=== PATIENT | male | born 1965 | race Caucasian/White ===

== ENCOUNTER 2019-12-07 14:54 | Inpatient (IN) | payer OTHER ==
[~2019-12-07] VITALS: Ht 175.3 cm; Wt 95.5 kg
[2019-12-07] MEDS ORDERED: LIPITOR 10MG10 MG PO (15:01)
[2019-12-07] MEDS ORDERED: LIPITOR20 MG PO (15:01)
[2019-12-07] MEDS ORDERED: ASPIRIN 81M81 MG/TA2 PO (15:01)
[2019-12-07 17:22] LABS: BASO % 0.2 % (0.0-2.0); EOS % 0.2 % (0-4.0); GRAN # 13.2 (1.4-6.5); HEMATOCRIT 38.6 % (42.0-52.0); HEMOGLOBIN 13.1 g/dl (13.5-18.0); LYMPH # 0.9 (1.2-3.4); LYMPH % 5.8 % (20.0-51.0); MEAN CELL VOLUME 89 fl (80.0-100.0); MEAN CORPUSCULAR HEMOGLOBIN 30 pg (27.0-31.0); MEAN CORPUSCULAR HGB CONC 34 g/dl (33.0-37.0); MEAN PLATELET VOLUME 13.1 fl (7.4-10.4); MONO # 0.9 (0.1-0.6); MONO % 6.1 % (1.7-9.3); PLATELET COUNT 137 K/mm3 (130-400); RED BLOOD COUNT 4.34 M/mm3 (4.20-5.60); REDCELL DISTRIBUTION WIDTH-CV 12.7 % (11.5-14.5)
[2019-12-07 17:25] LABS: ALBUMIN 3.9 gm/dL (3.5-5.0); BILIRUBIN,TOTAL 0.4 mg/dL (0.0-1.0); CALCIUM 8.5 mg/dL (8.4-10.2); CREATININE, serum 1.02 (0.66-1.25); POTASSIUM 3.8 mmol/L (3.4-5.0); TOTAL PROTEIN 6.9 gm/dL (6.4-8.2)
[2019-12-07 17:27] LABS: INR 1.1 (0.8-3.0); PROTHROMBIN TIME 11.8 SECONDS (9.7-12.8)
[2019-12-07 17:47] LABS: PARTIAL THROMBOPLASTIN TIME 25.3 SECONDS (26.0-37.0)
--- NOTE | 2019-12-07 19:15 | NUR ---
Patient arrived to floor around 183. He is on the splint and spine board from EMS. He had been on the spine board since being picked up by EMS. It took 4 people to get him off the splint and board. Patient stated his pain is out of control with every movement including breathing. Patient is alert and oriented. Explained the plan for now. He is laying in a very cramped up position. He will now allow us to try moving him around to place pillows under his legs. Dilauded given for pain, it was given early because patient is going for a CT his left femur and ankle. No other changes at this time. Call light within reach.
[2019-12-07 21:12] VITALS: BP 141/90; PULSE 106; TEMP 98.5
[2019-12-08] VITALS (12 sets, daily range): BP systolic 93–139; BP diastolic 59–81; PULSE 90–128; TEMP 97.6–98.1
[2019-12-08 01:29] LABS: COLLECTION METHOD CLEAN CATCH
[2019-12-08 01:35] LABS: MUCOUS Present /lpf; PH 7 (5-8); SQUAMOUS EPITHELIAL None Seen /hpf; URINE APPEARANCE Clear; URINE BACTERIA None Seen /hpf; URINE BILIRUBIN Negative (NEGATIVE); URINE BLOOD Negative (NEGATIVE); URINE COLOR Yellow; URINE GLUCOSE Negative (NEGATIVE); URINE KETONE Trace (NEGATIVE); URINE LEUKOCYTE ESTERASE Negative (NEGATIVE); URINE NITRATE Negative (NEGATIVE); URINE PROTEIN(semi-quant) Negative (NEGATIVE); URINE RBC 0-2 /hpf; URINE UROBILINOGEN Negative (NEGATIVE)
--- NOTE | 2019-12-08 05:55 | NUR ---
Patient alert and oriented this shift. Patient has been requiring dilaudid every 2 hours for pain management. He has been able to rest in short periods of time. Patient has been afebrile and is NPO at this time. IV to the left hand with LR running at 100mL/hr.
--- NOTE | 2019-12-08 08:00 | NUR ---
Patient resting in bed at this time. Patient is alert and oriented, answers questions appropriately. Patient reports pain at 8/10, will administer pain medication at earliest oppertunity. Pre op fluids hung and Humberto hose placed on uninjured leg. Patient denies needs at this time, call light within reach.
--- NOTE | 2019-12-08 13:15 | NUR ---
Patient returned from PACU via bed. Patient is drowsy but rouses easily, and is alert and oriented while awake. Patient denies needs at this time. Post op checks initiated, call light within reach.
--- NOTE | 2019-12-08 18:16 | NUR ---
Patient resting in bed at this time. PO PRN pain medications administered, patient tolerating PO intake well. Patient denies further needs at this time, call light within reach.
[2019-12-09] VITALS (12 sets, daily range): BP systolic 82–112; BP diastolic 53–75; PULSE 104–130; TEMP 98–99.7
--- NOTE | 2019-12-09 02:14 | NUR ---
PT ADMITTED TO 245 WITH RT HIP FRACTURE. SEE 5 PAGE ASSESSMENT. OXYMASK PLACED PT'S O2 SATS WERE DIPPING INTO 80's. PT SEEMS TO BE RESTING COMFORTABLY AT PRESENT. MORE ORDERS OBTAINED FROM ADMITTING PHYSICIAN VIA PHONE.
--- NOTE | 2019-12-09 03:38 | NUR ---
PT MEDICATED WITH DILAUDID, OXYCODONE AND TORADOL FOR LLE POST-OP PAIN. NO N/V. ICE IN USE. LLE ELEVATED. PALPABLE PEDAL PULSES.
[2019-12-09 07:52] LABS: MEAN CELL VOLUME 92 fl (80.0-100.0); MEAN CORPUSCULAR HGB CONC 33 g/dl (33.0-37.0); MEAN PLATELET VOLUME 13.1 fl (7.4-10.4); PLATELET COUNT 96 K/mm3 (130-400); RED BLOOD COUNT 2.97 M/mm3 (4.20-5.60); REDCELL DISTRIBUTION WIDTH-CV 13.1 % (11.5-14.5)
[2019-12-09 07:58] LABS: CREATININE, serum 1.23 (0.66-1.25); HEMATOCRIT 27.4 % (42.0-52.0); HEMOGLOBIN 9.1 g/dl (13.5-18.0); MEAN CORPUSCULAR HEMOGLOBIN 31 pg (27.0-31.0); POTASSIUM 4.3 mmol/L (3.4-5.0)
--- NOTE | 2019-12-09 08:00 | NUR ---
Patient left floor with pre op via bed. Patient was alert and oriented while awake and denied needs.
--- NOTE | 2019-12-09 11:00 | NUR ---
Patient arrived to floor from PACU via bed. Patient is alert and oriented but drowsy, rouses easily. Patient reports pain is well controlled and denies needs. Post op checks initated, call light within reach.
[2019-12-09 14:22] LABS: HEMOGLOBIN 7.8 g/dl (13.5-18.0)
--- NOTE | 2019-12-09 18:38 | NUR ---
Patient currently resting in bed eating dinner. Patient continues to complain of discomfort in ankle splint, repositioning and PRN pain medication offer some relief, cap refill WNL. Patient denies nausea or further needs, call light within reach.
[2019-12-09 21:49] LABS: HEMATOCRIT 24.3 % (42.0-52.0); HEMOGLOBIN 8.1 g/dl (13.5-18.0)
--- NOTE | 2019-12-10 00:59 | NUR ---
PATIENT ALERT AND ORIENTED. CONTINUED C/O PAIN TO L HIP AND L ANKLE. FREQUENTLY NEEDING REPOSITIONED AND CANNOT FIND A COMFORTABLE POSITION. L HIP IS VERY TIGHT AND SWOLLEN. X6 INCISIONAL SITES TO UPPER L LEG ARE CDI WITH GAUZE AND TEGADERM. L ANKLE IS SPLINTED AND MURALI WRAPPED. PRN DILAUDID, AUTUMN, AND ZANAFLEX GIVEN THROUGHOUT NIGHT. SCHEDULED TORADOL AND ANCEF GIVEN WITHOUT ISSUE. IV TO L HAND INFILTRATED AND RESTARTED ON SECOND ATTEMPT TO R FA. PATIENT WAS TACHYCARDIC EARLIER AND WAS STARTED ON TELE. BP WAS LOW AND 1 L FLUID BOLUS WAS ORDERED BY CLINTON FERMIN AND GIVEN. HGB DOWN TO 8.1.
[2019-12-10 04:16] VITALS: BP 110/61; PULSE 126; TEMP 98.7
[2019-12-10 06:27] LABS: BASO % 0.4 % (0.0-2.0); EOS # 0.3 (0.0-0.7); EOS % 3.5 % (0-4.0); GRAN # 5.1 (1.4-6.5); GRAN % 68.4 % (42.2-75.2); LYMPH # 1.4 (1.2-3.4); LYMPH % 18.2 % (20.0-51.0); MEAN CELL VOLUME 92 fl (80.0-100.0); MEAN CORPUSCULAR HGB CONC 34 g/dl (33.0-37.0); MEAN PLATELET VOLUME 12.7 fl (7.4-10.4); MONO # 0.7 (0.1-0.6); MONO % 9.4 % (1.7-9.3); PLATELET COUNT 90 K/mm3 (130-400); RED BLOOD COUNT 2.47 M/mm3 (4.20-5.60); REDCELL DISTRIBUTION WIDTH-CV 12.9 % (11.5-14.5)
[2019-12-10 06:37] LABS: HEMATOCRIT 22.6 % (42.0-52.0); HEMOGLOBIN 7.7 g/dl (13.5-18.0); MEAN CORPUSCULAR HEMOGLOBIN 31 pg (27.0-31.0)
[2019-12-10 06:55] LABS: CREATININE, serum 1.08 (0.66-1.25)
[2019-12-10 07:53] VITALS: BP 108/56; PULSE 128; TEMP 98.3
--- NOTE | 2019-12-10 08:00 | NUR ---
Patient in bed resting, alert and oriented x 3. Assessment complete. States mild pain to left lower extremity. Sites x6 to left lower extremity with gauze are CDI. Ecchymosis noted to left upper thigh. Splint to left ankle with cisco wrap are CDI. Denies further needs at this time.
--- NOTE | 2019-12-10 10:10 | NUR ---
Patient called out to nurses station, states he is having pain to LLE crushing pain to left hip and throbbing pain to left ankle. Medications given per orders.
--- NOTE | 2019-12-10 10:37 | NUR ---
EROS met with the patient to complete initial intake. The patient lives by [address] [place]between [place] and [place]. The patient lives with his , and his 85 year old father. The patient does not have DME and is independent with ADLs. The patient's PCP is Dr. Rivera at [place] and also receives medications from there. The patient does not have advanced directives in the EMR. Physical therapy is recommending post acute rehab. The patient was open to sending a referral to [facility] and not where else. If he cannot get into [facility] here he will go home with outpatient therapy at [facility]. EROS informed ELMER Truong Director of the referral. Will continue to monitor.
--- NOTE | 2019-12-10 11:06 | NUR ---
First visit from the photography coordinator. prayed with patient. No other needs right now.
[2019-12-10 12:18] VITALS: BP 114/56; PULSE 122; TEMP 98.4
--- NOTE | 2019-12-10 12:31 | NUR ---
Hospitalist and team in to see patient.
[2019-12-10 12:40] LABS: HEMATOCRIT 22.6 % (42.0-52.0); HEMOGLOBIN 7.6 g/dl (13.5-18.0)
--- NOTE | 2019-12-10 13:09 | NUR ---
Left message for [facility], patient has questions for ortho.
--- NOTE | 2019-12-10 14:26 | NUR ---
Patient ambulated >20 feet with x1 assist and walker.
--- NOTE | 2019-12-10 15:09 | NUR ---
Contacted [facility], states they will be by later today to see patient.
[2019-12-10] MEDS ORDERED: PERCOCET 325 MG1 TAB PO (16:05)
[2019-12-10] MEDS ORDERED: COLACE 100100 MG/CAP PO (16:05)
[2019-12-10] MEDS ORDERED: ASPI325T6 PO (16:05)
[2019-12-10 16:18] VITALS: BP 131/81; PULSE 109; TEMP 98.5
--- NOTE | 2019-12-10 16:49 | NUR ---
Patient states pain is better since administration of percocet and muscle relaxer.
--- NOTE | 2019-12-10 19:30 | NUR ---
PATIENT UP IN CHAIR DURING CHANGE OF SHIFT REPORT FROM DAY SHIFT NURSEAMARILIS. TELE IN PLACE, SALINE LOCK INTACT. SEE eMAR FOR PRN MEDS GIVEN.
--- NOTE | 2019-12-10 19:35 | NUR ---
Patient has done well throughout the day. Has been up ambulating with x 1 assist and walker. States he would like to be able to regain mobility as soon as possible. Pain medications given throughout the day with relief. Patient has stated that xanaflex has also helped with pain, requested this evening prior to ambulating. Denies further needs at this time. Reported off to line assembler.
--- NOTE | 2019-12-10 20:00 | NUR ---
DECREASED ROM TO LLE DUE TO L HIP SURGERY/SWELLING/PAIN WITH MOVEMENT AND TO L ANKLE D/T SPLINT/MURALI DRESSING&PAIN&NWB STATUS TO LLE. OBSERVED SWELLING/BRUISING TO LATERAL L TORSO/HIP AREAS AND TO L TESTICLE. ELEVATED L TESTICLE ON FOLDED TOWEL AND APPLIED COOL/WET WASHCLOTHE FOR COMFORT. ELEVATES LLE ON PILLOWS WITH ICE PACKS TO LEFT THIGH/KNEE AREAS.
[2019-12-10 20:44] VITALS: BP 104/68; PULSE 97; TEMP 98.1
--- NOTE | 2019-12-10 22:45 | NUR ---
PATIENT SLEEPING CURRENTLY, DOES NOT AWAKEN WHEN DOOR TO ROOM IS OPENED BY STAFF. OBSERVED BREATHING NONLABORED AND EVEN. LLE ELEVATED, ICE TO LLE IN PLACE.
[2019-12-11] VITALS (7 sets, daily range): BP systolic 83–122; BP diastolic 40–64; PULSE 95–107; TEMP 97.7–99.4
--- NOTE | 2019-12-11 01:29 | NUR ---
PATIENT SLEEPING, DOES NOT AWAKEN WHEN DOOR TO ROOM IS OPENED BY STAFF. OBSERVED BREATHING NONLABORED AND EVEN.
--- NOTE | 2019-12-11 07:20 | NUR ---
PATIENT RESTING IN BED DURING CHANGE OF SHIFT REPORT GIVEN TO DAY SHIFT NURSEAMARILIS. NO OTHER NEEDS REPORTED. ENCOURAGED PATIENT TO INCREASE FLUID INTAKE WHEN ABLE.
[2019-12-11 07:33] LABS: CALCIUM 8.2 mg/dL (8.4-10.2); CREATININE, serum 1.1 (0.66-1.25); POTASSIUM 4.1 mmol/L (3.4-5.0)
[2019-12-11 07:38] LABS: BASO % 0.5 % (0.0-2.0); EOS # 0.4 (0.0-0.7); EOS % 5.4 % (0-4.0); GRAN # 4.4 (1.4-6.5); GRAN % 59.1 % (42.2-75.2); LYMPH % 26.5 % (20.0-51.0); MEAN CELL VOLUME 92 fl (80.0-100.0); MEAN CORPUSCULAR HGB CONC 34 g/dl (33.0-37.0); MEAN PLATELET VOLUME 13.4 fl (7.4-10.4); MONO # 0.6 (0.1-0.6); MONO % 7.6 % (1.7-9.3); PLATELET COUNT 109 K/mm3 (130-400); REDCELL DISTRIBUTION WIDTH-CV 13.1 % (11.5-14.5)
[2019-12-11 07:42] LABS: HEMATOCRIT 21.1 % (42.0-52.0); HEMOGLOBIN 7.1 g/dl (13.5-18.0); MEAN CORPUSCULAR HEMOGLOBIN 31 pg (27.0-31.0)
--- NOTE | 2019-12-11 08:00 | NUR ---
Patient in bed resting. Alert and oriented x 3. Assessment complete. x6 sites to left thigh are CDI. Eccymosis noted to groin and left outer thigh. Left lower leg with cisco wrap. INT to right forarm. States he has a sore throat, feels dry states ICE helps. Denies further needs at this time.
--- NOTE | 2019-12-11 08:55 | NUR ---
Patient requested muscle relaxer for thigh pain. Medication given per orders.
--- NOTE | 2019-12-11 08:59 | NUR ---
Patient up with PT
--- NOTE | 2019-12-11 19:11 | NUR ---
Patient has done well throughout the day. Sitting up in recliner. Has requested pain medication throughout the day, Medications given per orders. Ice maintained to left hip throughout the day. Oxygen on intermittently throughout the day. Left hip elevated on pillows. Denies further needs at this time. Will report off to retail shift supervisor.
--- NOTE | 2019-12-11 19:50 | NUR ---
PATIENT UP IN CHAIR DURING CHANGE OF SHIFT REPORT FROM DAY SHIFT NURSEAMARILIS. LLE ELEVATED ON PILLOWS. TELE IN PLACE. DENIES ANY NEEDS CURRENTLY.
--- NOTE | 2019-12-11 20:00 | NUR ---
DECREASED ROM TO LLE/HIP D/T SURGERY/PAIN WITH MOVEMENT/SWELLING AND SPLINT/MURALI DRSG TO L ANKLE. REPORTS DECREASED SENSATION TO LEFT TOES IS IMPROVING. TELE IN PLACE. CONTINUES TO ELEVATE LLE AT ALL TIMES, ELEVATES L TESTICLE NEEDED/FOR COMFORT.
--- NOTE | 2019-12-12 01:00 | NUR ---
PATIENT SLEEPING, DOES NOT AWAKEN WHEN DOOR TO ROOM IS OPENED BY STAFF. OBSERVED BREATHING NONLABORED AND EVEN. TELE IN PLACE. LLE ELEVATED ON PILLOWS. O2 CONTINUES PER NC.
[2019-12-12 04:53] VITALS: BP 113/60; PULSE 91; TEMP 98.4
[2019-12-12 07:22] LABS: BASO # 0.1 (0.0-0.2); BASO % 0.7 % (0.0-2.0); EOS # 0.5 (0.0-0.7); EOS % 6.7 % (0-4.0); GRAN # 4.1 (1.4-6.5); GRAN % 61.8 % (42.2-75.2); LYMPH # 1.5 (1.2-3.4); LYMPH % 22.7 % (20.0-51.0); MEAN CELL VOLUME 94 fl (80.0-100.0); MEAN CORPUSCULAR HGB CONC 32 g/dl (33.0-37.0); MEAN PLATELET VOLUME 12.8 fl (7.4-10.4); MONO # 0.5 (0.1-0.6); MONO % 7.7 % (1.7-9.3); PLATELET COUNT 135 K/mm3 (130-400); RED BLOOD COUNT 2.49 M/mm3 (4.20-5.60)
[2019-12-12 07:30] LABS: HEMATOCRIT 23.3 % (42.0-52.0); HEMOGLOBIN 7.5 g/dl (13.5-18.0); MEAN CORPUSCULAR HEMOGLOBIN 30 pg (27.0-31.0)
--- NOTE | 2019-12-12 07:30 | NUR ---
PATIENT RESTING IN BED DURING CHANGE OF SHIFT REPORT GIVEN TO DAY SHIFT NURSEAMARILIS. TELE IN PLACE. NO OTHER NEEDS REPORTED.
[2019-12-12 07:35] LABS: CALCIUM 8.2 mg/dL (8.4-10.2); CREATININE, serum 1.05 (0.66-1.25); POTASSIUM 3.7 mmol/L (3.4-5.0)
[2019-12-12 07:53] VITALS: BP 135/67; PULSE 101; TEMP 99
--- NOTE | 2019-12-12 08:00 | NUR ---
Patient in bed resting. Alert and oriented x 3. Assessment complete. Patient states mild pain to LLE. Refuses medication at this time. sites x6 to left thigh is CDI, Eccymosis noted to left thigh and groin. Splint to LLE with cisco wrap. Denies further needs at this time.
--- NOTE | 2019-12-12 09:00 | NUR ---
Patient shaved and performed hygine independently.
--- NOTE | 2019-12-12 11:46 | NUR ---
Patient sitting up in recliner
--- NOTE | 2019-12-12 12:08 | NUR ---
Assisted patient back to bed. Elevated LLE on pillows.
[2019-12-12] MEDS ORDERED: PERCOCET 325 MG1 TA3 PO (12:10)
[2019-12-12 12:28] VITALS: BP 95/68; PULSE 91; TEMP 98.3
[2019-12-12] MEDS ORDERED: IBU400 MG PO (12:59)
[2019-12-12] MEDS ORDERED: ULTRAM 50MG TAB50 MG PO (12:59)
[2019-12-12] MEDS ORDERED: ZANAFLEX 4MG TAB4 MG PO (12:59)
[2019-12-12] MEDS ORDERED: PEPCID AC20 MG PO (12:59)
[2019-12-12] MEDS ORDERED: OCEAN NASAL SPR45 ML NS (12:59)
--- NOTE | 2019-12-12 15:17 | NUR ---
Patient has done well throughout the day. Has requested pain medications throughout the day, medications given per orders. Patient transfered to [facility] by bed. Report called to Layla COSTA.
== END 2019-12-12 15:19 | DRG 480 ==
LOC: COL.ER 14:54 → JCC 16:59
PROVIDERS: Emergency Medicine; Nurse Practitioner Family; Orthopaedic Surgery Sports Medicine; Physician Assistant
PROC: 0QSHXZZ Reposition Left Tibia, External Approach (ICD-10-PCS; 2019-12-08)
PROC: BW1CYZZ Fluoroscopy of Lower Extremity using Other Contrast (ICD-10-PCS; 2019-12-08)
PROC: 0QS706Z Reposition Left Upper Femur with Intramedullary Internal Fixation Device, Open Approach (ICD-10-PCS; principal; 2019-12-08 10:00)
PROC: 0QSH04Z Reposition Left Tibia with Internal Fixation Device, Open Approach (ICD-10-PCS; 2019-12-09)
DX: S72.142A Displaced intertrochanteric fracture of left femur, initial encounter for closed fracture (principal); J96.01 Acute respiratory failure with hypoxia; E87.1 Hypo-osmolality and hyponatremia; S82.872A Displaced pilon fracture of left tibia, initial encounter for closed fracture; W11.XXXA Fall on and from ladder, initial encounter; Y93.H9 Activity, other involving exterior property and land maintenance, building and construction; Y92.007 Garden or yard of unspecified non-institutional (private) residence as the place of occurrence of the external cause; G47.33 Obstructive sleep apnea (adult) (pediatric); E78.5 Hyperlipidemia, unspecified; R00.0 Tachycardia, unspecified; D64.9 Anemia, unspecified; I95.9 Hypotension, unspecified; D69.6 Thrombocytopenia, unspecified; D72.829 Elevated white blood cell count, unspecified; R74.8 Abnormal levels of other serum enzymes; Z79.82 Long term (current) use of aspirin
CPT/HCPCS: 99222-AI; 99231-AI; 99232-AI; A9284; C1713; C1769; J0690; J1170; J1885; J2060; J2250; J2274; J2370; J2405; J2550; J2704; J3010; J7030; J7120; Q4045

== ENCOUNTER 2019-12-12 14:44 | Inpatient (IN) | payer OTHER ==
[~2019-12-12] VITALS: Ht 175.3 cm; Wt 93.0 kg
[~2019-12-12 14:44] MED LIST: ASPI325T6 PO; ASPIRIN 81M81 MG/TA2 PO; COLACE 100100 MG/CAP PO; IBU400 MG PO; LIPITOR 10MG10 MG PO; LIPITOR20 MG PO; OCEAN NASAL SPR45 ML NS; PEPCID AC20 MG PO; PERCOCET 325 MG1 TA3 PO; PERCOCET 325 MG1 TAB PO; ULTRAM 50MG TAB50 MG PO; ZANAFLEX 4MG TAB4 MG PO
--- NOTE | 2019-12-12 15:20 | NUR ---
Patient transferred via bed from room 328 to 340. Oriented to room. Dressings x6 to left hip CDI. Significant bruising noted to left hip, buttocks, and scrotum. Splint intact to left ankle. Rates pain at this time 6.5/10 to left leg. Certain positions and movements increase the pain. Patient denies needs at this time.
[2019-12-12 16:23] VITALS: BP 123/72; PULSE 92; TEMP 98.3
--- NOTE | 2019-12-12 17:41 | NUR ---
Patient has headache and having hard time getting comfortable in the bed. Administered Motrin as prescribed, patient did not want any other pain med at this time. Assisted into comfortable position. Top dressing to left hip coming loose so dressing changed at this time. Ice pack provided for head. Patient denies further needs.
--- NOTE | 2019-12-13 00:39 | NUR ---
PATIENT DOING WELL TONIGHT. C/O MODERATE PAIN AND PRN TRAMADOL PROVIDED. POSITIONING IS DIFFICULT FOR PATIENT AND IT CAN BE HARD TO GET COMFORTABLE IN BED. ASSISTED X2 TIMES TO COMMODE WITH X1 ASSIST AND WALKER. NO BM, BUT PATIENT IS STILL URINATING. X6 DRESSINGS TO L HIP CDI. SPLINT TO L ANKLE. LLE ELEVATED AND ICED. DID NOT EAT MUCH OF DINNER. NO FURTHER NEEDS AT THIS TIME. WILL CONTINUE TO MONITOR.
[2019-12-13 03:29] VITALS: BP 123/73; PULSE 83; TEMP 98
--- NOTE | 2019-12-13 07:51 | NUR ---
Lying in bed with eyes open. Patient says that he does not feel that he had a good night, didn't get enough sleep. CMS intact to left leg. Cast to left lower extremity. Dressings x6 to left hip CDI. Rates pain 8/10 in left leg. Will administer scheduled Tramadol at this time.
--- NOTE | 2019-12-13 10:08 | NUR ---
The patient is new to [facility]. SW met with the patient to complete initial intake. The patient lives [address] in-between [place] and [place]. The patient lives with his , and his 85 year old father. The patient does not have DME and is independent with ADLs. The patient's PCP is Dr. Rivera at [place] and also receives medications from there. The patient does not have advanced directives in the EMR. EROS will continue to follow to ensure the patient has a safe discharge.
--- NOTE | 2019-12-13 10:41 | NUR ---
In halls with PT in wheelchair.
--- NOTE | 2019-12-13 11:29 | NUR ---
Lying in bed with eyes open. Rates pain 9/10 in left leg. Administered Percocet at prescribed. Patient would like medication for constipation. Administered Miralax as prescribed. Patient denies further needs.
--- NOTE | 2019-12-13 12:36 | NUR ---
Lying in bed with eyes closed. Opens eyes when name called out. Patient has not started on lunch at this time as he just does not have an appetite at this time. Patient says that all his therapies this morning wore him out. Patient denies needs at this time.
--- NOTE | 2019-12-13 15:15 | NUR ---
Lying in bed with eyes closed. Respirations even and unlabored. No signs or symptoms of discomfort noted at this time.
[2019-12-13 15:46] VITALS: BP 138/85; PULSE 88; TEMP 98.4
--- NOTE | 2019-12-13 17:45 | NUR ---
Patient contacts dietary to have them send up different food for him to eat. Attempted to eat original dinner tray but did not like it. Patient denies any needs at this time.
--- NOTE | 2019-12-13 20:00 | NUR ---
PT IN BED WITH HOB ELEVATED TO 45 DEGREE ANGLE. PT ON ROOM AIR, A/O X4, AND ADVISES PAIN ABOUT 7/10 REQUESTING MOTRIN AT THIS TIME. PT TRYING TO USE URINAL. PT GIVEN PAIN MEDICATION AND RESTING IN BED AT THIS TIME, NO FURTHER NEEDS. CALL LIGHT WITHIN REACH.
--- NOTE | 2019-12-14 05:49 | NUR ---
PT SLEPT WELL FOR MOST OF THE NIGHT. PT DID USE THE URINAL AND ATTEMPTED TO HAVE A BOWEL MOVEMENT IN THE BATHROOM. PT USED GAITBELT AND WALKER. PT DID NOT APPLY WEIGHT ON LEFT LEG. PT ASSISTED BACK TO BED AND HAD SCHEDULED PAIN MEDICATION AND DID WELL. CALL LIGHT WITHIN REACH.
[2019-12-14 05:58] VITALS: BP 126/71; PULSE 73; TEMP 97.6
[2019-12-14 07:15] LABS: BASO % 0.8 % (0.0-2.0); EOS # 0.4 (0.0-0.7); GRAN # 2.8 (1.4-6.5); GRAN % 54.1 % (42.2-75.2); LYMPH # 1.4 (1.2-3.4); LYMPH % 27.3 % (20.0-51.0); MEAN CELL VOLUME 94 fl (80.0-100.0); MEAN CORPUSCULAR HGB CONC 33 g/dl (33.0-37.0); MEAN PLATELET VOLUME 11.6 fl (7.4-10.4); MONO # 0.5 (0.1-0.6); MONO % 8.8 % (1.7-9.3); PLATELET COUNT 204 K/mm3 (130-400); RED BLOOD COUNT 2.83 M/mm3 (4.20-5.60); REDCELL DISTRIBUTION WIDTH-CV 13.2 % (11.5-14.5)
[2019-12-14 07:25] LABS: HEMATOCRIT 26.5 % (42.0-52.0); HEMOGLOBIN 8.6 g/dl (13.5-18.0); MEAN CORPUSCULAR HEMOGLOBIN 30 pg (27.0-31.0)
[2019-12-14 07:32] LABS: ALBUMIN 3.9 gm/dL (3.5-5.0); BILIRUBIN,TOTAL 1.6 mg/dL (0.0-1.0); CALCIUM 8.4 mg/dL (8.4-10.2); CREATININE, serum 0.92 (0.66-1.25); MAGNESIUM 2.2 mg/dL (1.6-2.3); POTASSIUM 3.9 mmol/L (3.4-5.0); TOTAL PROTEIN 7.1 gm/dL (6.4-8.2)
--- NOTE | 2019-12-14 09:39 | NUR ---
Patient given prn suppository due to constipation. He has not had a bowel movement since last Tuesday. Patient given scheduled tramadol this morning, and refused any oxycodone. He is a one assist with gaitbelt and walker to the toilet. Currently he is resting in bed, call light in reach and bed alarm is set. Will continue to monitor.
--- NOTE | 2019-12-14 10:16 | NUR ---
Patient abdomen hurting due to constipation. Currently resting in bed at this time, call light in reach. Will continue to monitor.
[2019-12-14 14:39] LABS: COLLECTION METHOD CATHETER
[2019-12-14 14:44] LABS: PH 8 (5-8); SQUAMOUS EPITHELIAL None Seen /hpf; URINE APPEARANCE Clear; URINE BACTERIA Rare /hpf; URINE BILIRUBIN Negative (NEGATIVE); URINE BLOOD Negative (NEGATIVE); URINE COLOR Yellow; URINE GLUCOSE Negative (NEGATIVE); URINE KETONE Trace (NEGATIVE); URINE LEUKOCYTE ESTERASE Negative (NEGATIVE); URINE NITRATE Negative (NEGATIVE); URINE PROTEIN(semi-quant) Negative (NEGATIVE); URINE RBC 0-2 /hpf; URINE UROBILINOGEN Negative (NEGATIVE)
--- NOTE | 2019-12-14 17:00 | NUR ---
Patient attended all morning therapies even with the severe bladder pain. This nurse was told by patient that he hadn't been able to urinate since this morning. This nurse did a bladder scan and found >[address] Hutchison was called and received orders to put in a catheter for urinary retention. This nurse placed a 16 gauge Coude weber catheter and had 1000 ml output at that time. Urine specimen was collected and sent to lab. See results. Patient was having pain in groin area and tip of penis so order for Lidocaine was given per Dr. Hutchison with good effect to that area. Patient continued to have bladder spasms and was leaking around the catheter. See new orders from Dr. Hutchison to start Levsin to help with bladder spasms. Placed patient in brief at that time, to help with the urinary leakage from the spasms. Patient was given hot packs to his back and groin area to help with pressure pain and following the catheter placement patient was able to finally have a bowel movement when lying in bed. Patient was cleaned up and did have one more loose BM that was continent this evening. Patient was able to eat some of his supper this evening. Patient refused his afternoon Tramadol stating that his pain had deminished.
--- NOTE | 2019-12-14 18:00 | NUR ---
Reported off to night nurse.
[2019-12-14 18:11] VITALS: BP 117/79; PULSE 120; TEMP 98.6
--- NOTE | 2019-12-14 19:45 | NUR ---
Received report from Queta. Patient is awake, lying on bed. He states Queta helped him a lot with the pain he had this afternoon and the weber catheter helped him a lot. He denies any pain right now. Noted to have large bruising on left hip and groin.
--- NOTE | 2019-12-15 03:30 | NUR ---
Due Tramadol given. Patient states his right forearm feels sore, pain score of 4-5/10. He requests for ice pack. His left leg's pain score is 6/10.
[2019-12-15 05:17] VITALS: BP 127/80; PULSE 79; TEMP 97.6
--- NOTE | 2019-12-15 07:32 | NUR ---
Patient was able to sleep. He's just verbalizing on how he cannot see his family and with his current condition right now. He states his forearm is much better now and refuses for another set of ice pack. Still with pain on his left leg, pain score of 6/10.
--- NOTE | 2019-12-15 09:45 | NUR ---
PATIENT ASSESSMENT COMPLETED. HE IS UP IN THE CHAIR. IS HAVING LEFT HIP PAIN, SCHEDULED MEDICAITON GIVEN AND REPOSITONED. HE DENIES OTHER NEEDS
--- NOTE | 2019-12-15 11:54 | NUR ---
PATIENT RESTING IN BED. AWAKENS TO TAKE MEDICATION AND LAYS BACK DOWN. HE WANTS A SHORT NAP AND THEN WILL EAT LUNCH.
--- NOTE | 2019-12-15 16:54 | NUR ---
PAIN IS BETTER IT IS NOT INTENSE IT WAS. RESTING IN BED.
[2019-12-15 17:15] VITALS: BP 139/68; PULSE 89; TEMP 98.4
--- NOTE | 2019-12-15 18:10 | NUR ---
PATIENT DECLINES TO EAT TONIGHT. HE FEELS FULL. GI COCKTAIL WAS GIVEN TO DI
--- NOTE | 2019-12-16 05:34 | NUR ---
PATIENT HAS BEEN RESTING IN BED, BUT ALERT WHEN IN ROOM. PATIENT WAS UP TO USE THE COMMODE ONCE WITH THE AIDE AND ONCE WITH THE NURSE. PATIENT THEN COMPLAINED OF A LOT OF PAIN. SCHEDULED AND PRN MOTRIN WAS GIVEN TO THE PATIENT FOR HIS PAIN. PATIENT HAS DENIED ANY OTHER NEEDS. WILL REPORT OFF TO DAY SHIFT UPON THEIR ARRIVAL
[2019-12-16 05:41] VITALS: BP 127/72; PULSE 72; TEMP 98.1
[2019-12-16 05:51] LABS: HEMATOCRIT 27.8 % (42.0-52.0)
--- NOTE | 2019-12-16 06:50 | NUR ---
resting in bed, bedside shift report received from JULISSA Hickman, expresses that he is tired of being in the room all the time, asking if he can go outside or off the unit, explained tohim that is not possible at this time, that he can go around the unit but that is all,
--- NOTE | 2019-12-16 08:20 | NUR ---
in bed and appears to be sleeping, eyes closed, resp quiet and easy
--- NOTE | 2019-12-16 09:05 | NUR ---
was up to bedside commode to attempt to have a bowel movement but was unsuccessful, am meds given which includes miralax and colace, full assessment completed, see interventions for further info, states pain is 5/10 and refuses scheduled tramadol, wants to try and "clear his head", given tylenol 650mg, provided supplies and will complete am hygiene
--- NOTE | 2019-12-16 10:00 | NUR ---
was able to complete am care independently, physical therapy was in and worked with patient,
--- NOTE | 2019-12-16 12:10 | NUR ---
assisted up to bedside commode, states tylenol given earlier has helped with pain
--- NOTE | 2019-12-16 15:06 | NUR ---
requested to get up and take a walk, ambulated about 30 feet, then into WC, remained up in WC and moving around the unit,
--- NOTE | 2019-12-16 17:21 | NUR ---
has been resting back in bed since ambulating in [place] and being up in WC, has attempted to have another bowel movement and has been unsuccessful, denies other needs
[2019-12-16 17:43] VITALS: BP 114/52; PULSE 78; TEMP 98.1
--- NOTE | 2019-12-16 18:45 | NUR ---
bedside shift report given to JULISSA Santiago
--- NOTE | 2019-12-16 19:00 | NUR ---
Pt REPORT RECEIVED FROM NORMA COSTA AT BEDSIDE. Pt IS RESTING IN BED WITH TV ON AND CALL LIGHT/TV REMOTE ON HIS ABDOMEN. Pt STATES THAT HE DOES NOT WANT TO TAKE ULTRAM D/T THE WAY IT MAKES HIM FEEL IF HE IS DOPED UP. WILL CONTINUE TO MONITOR.
--- NOTE | 2019-12-16 22:55 | NUR ---
Pt is A&Ox4 and is able to easily make his wants/needs known to staff. Pt is compliant with use of call light prior to transfers, is cooperative with care, and compliant with medication regimen. Pt states he prefers not to take Ultram or anything stronger than Motrin/APAP due to not liking how these narcotic medications make him feel "dopey". Pt was just assisted to the bedside commode and after notifying this ad writer via call light Pt was found sitting on his bedside with his underwear pulled down. Pt uses his walker to transfer to his feet and requires this ad writer to help hold the walker steady as Pt comes to his feet. Pt is able to pivot turn with no pressure applied to his left L.E which is wrapped in an acewrap bandage post surgery. Pt is ntoed to have a small loose dark brown BM and Pt is able to perform toileting hygiene unassisted. Pt requires asssitance to reposition himself in bed and reposition his pillows used to elevate his LLE. Pt states that he would like an Ultram with his AM meds so that he will be ready for therapy at 0800. Pt requests an ice pack, which this ad writer provides, and Pt places the ice pack to his left lateral thigh/knee. Pt has call light at his side and remains in stable condition at this time with no s/s of distress and dressing CDI. Will continue to monitor.
--- NOTE | 2019-12-17 02:38 | NUR ---
Pt has been resting in bed peacefully with eyes closed and no s/s of distress noted. Pt has call light within reach. [place] night bag noted to have increased urine since last round with urine noted as clear sera. Will continue to monitor.
[2019-12-17 05:19] VITALS: BP 116/60; PULSE 63; TEMP 98.3
--- NOTE | 2019-12-17 11:30 | NUR ---
PATIENT ASSISTED TO BEDSIDE CHAIR. PATIENT IS A&OX4. VSS. BOWEL SOUNDS ACTIVE ALL FOUR QUADRANTS. PATIENT TOLERATING DIET WITHOUT ANY COMPLAINTS OF N/V. GENERALIZED WEAKNESS NOTED. NON-PITTING EDEMA TO LLE. ECCHYMOSIS TO LEFT THIGH. LEFT HIP INCISION SITES X6 DRESSED WITH GAUZE AND TEGADERM DRESSINGS AND ARE CD&I. CAP REFILL <3 SECONDS TO BLE. CMS INTACT. INDWELLING SIBLEY CATHETER TO DEPENDENT DRAINAGE WITH CLEAR YELLOW URINE PRESENT IN SIBLEY BAG. PATIENT STATES THAT HE IS HAVING PINS AND NEEDLES LIKE PAIN IN THE LLE. PATIENT IS RATING HIS PAIN A 6/10 ON A 0-10 SCALE. PATIENT DENIES ANY NEEDS AT THIS TIME.
--- NOTE | 2019-12-17 13:05 | NUR ---
SIBLEY CATHETER DISCONTINUED PER ORDERS. 9 MLS OF STERILE WATER ASPIRATED FROM BALLOON. TIP INTACT. PATIENT TOLERATED WELL.
--- NOTE | 2019-12-17 13:24 | NUR ---
Admission QIM scores were reviewed by the team. Code of 3 chosen for lying to sitting on side of bed was determined by team discussion to be the most usual performance before interventions for this patient during the assessment period. Code of 4 chosen for sit to stand was determined by team discussion to be the most usual performance for this patient during the assessment period.--Dionne Martínez, PD
--- NOTE | 2019-12-17 15:29 | NUR ---
Spoke w/ pt about d/c planning. Informed him the team is thinking d/c on , 12/20/19, which he was fine w/. Told him team would like to do a family meeting on 12/18/19 @ 1:15 pm & inquired if he wanted SW to call his . He texted her & she responded it would be fine.
[2019-12-17 16:53] VITALS: BP 119/68; PULSE 73; TEMP 97.9
--- NOTE | 2019-12-17 17:00 | NUR ---
PATIENT MOVED FROM ROOM 340 TO 336 TO CLOSE ROOM FOR SINK MAINTENANCE.
--- NOTE | 2019-12-17 18:35 | NUR ---
REPORT GIVEN TO JULISSA CLEMENTS.
--- NOTE | 2019-12-17 22:18 | NUR ---
PT IN BED WITH HOB ELEVATED TO 45 DEGREE ANGLE. PT ON PHONE WITH . PT EARLIER WAS ASSISTED TO BATHROOM, WHERE HE HAD A BOWEL MOVEMENT. PT WAS THEN ASSISTED BACK TO BED. PT HAS PAIN IN LLE RATED AT A 7/10. PAIN MEDICATION GIVEN. NO FURTHER NEEDS CALL LIGHT WITHIN REACH.
--- NOTE | 2019-12-18 04:09 | NUR ---
PT WAS ASSISTED TO THE BATHROOM AND THEN BACK TO BED. BEFORE HE WENT TO SLEEP. PT REFUSED 0100 TRAMADOL AND HAS ONLY WANTED 1/2 OF THE 50MG PILL WHEN HE DID TAKE IT EARLIER THIS SHIFT. PT STATES THAT 50MG OF TRAMADOL MAKES HIM FEEL LOOPY AND ONLY WANTS HAVE THE DOSE. PT HAD NO ISSUE OR CHANGES OVER NIGHT. CALL LIGHT WITHIN REACH.
[2019-12-18 04:52] VITALS: BP 118/68; PULSE 75; TEMP 97.8
--- NOTE | 2019-12-18 08:46 | NUR ---
Patient working with therapy at this time. Patient reporting pain mainly to lower back and reports heating pad and pain patch is helpful. Will continue to monitor.
--- NOTE | 2019-12-18 11:17 | NUR ---
Patient resting in bed at this time, call light in reach. Patient has Left leg elevated on pillow at this time with a heating pad on his left hip. Patient given prn tramadol, but patient reports that pain is still 8-9/10 following therapies. Will continue to monitor.
--- NOTE | 2019-12-18 13:34 | NUR ---
A Family Conference was conducted with pt & pt's , Hafsa, via phone. Also present was PT, OT, & Machine Cell T[employer]. Machine Cell Tuber started by explaining the purpose of the meeting. The therapists explained how pt has been functioning & making good progress. Informed them of d/c for , 12/20/19 w/ recommendation for Home Exercise Program. They were fine w/ this plan. The did ask some questions, which team answered.
--- NOTE | 2019-12-18 14:06 | NUR ---
EROS contacted [facility] to inquire about the patient's equipment. Dorcas with [facility] has ordered a commode and a walker for the patient. EROS attempted to contact Dorcas with the [facility] to discuss the recommendation about needing a wheelchair, left message. Will continue to follow.
[2019-12-18 15:55] VITALS: BP 126/71; PULSE 76; TEMP 98.1
--- NOTE | 2019-12-18 19:36 | NUR ---
Patient finished out therapies today, but was very tired and in more pain. Given prn Ibuprofen and later prn Tylenol with good effect. Patient refused his lunch today, but did eat a small portion of supper. He asked for an evening snack and had apples, peanut butter and grahamcrackers. Incisions to left leg and hip are clean dry and intact. He has had multiple loose stools today see orders to DC bowel meds at this time. Discussed discharge planning today and follow up appointments have been made. Reported off to night nurse.
--- NOTE | 2019-12-18 22:09 | NUR ---
PATIENT DOING WELL TONIGHT. DENIES NEED FOR PAIN MEDICATIONS. TOOK SCHEDULED MEDS WITHOUT ISSUE. X6 SMALL INCISIONS TO L LEG CDI WITH GAUZE AND TEGADERM. SPLINT TO LLE IN PLACE. STILL SIGNIFICANT SWELLING TO L HIP AND TESTICLES. NO FURTHER NEEDS AT THIS TIME. WILL CONTINUE TO MONITOR.
[2019-12-19 05:12] VITALS: BP 122/73; PULSE 79; TEMP 98.2
--- NOTE | 2019-12-19 08:58 | NUR ---
Patient working with therapy at this time. Patient tolerated breakfast well. He was voicing concern about being able to keep up with all the therapy today, since he was so worn out yesterday following therapies. Patient given prn Tramadol prior to therapy this morning. Will continue to monitor.
--- NOTE | 2019-12-19 10:46 | NUR ---
EROS attempted to contact Carine Power at [facility] to inquire about ordering a wheelchair for the patient, left message.
[2019-12-19 15:46] VITALS: BP 107/60; PULSE 70; TEMP 98.2
--- NOTE | 2019-12-19 16:08 | NUR ---
EROS met with the patient and the patient's (via [employer]) to present Team Conference notes. EROS informed the patient about not beening able to contact the [facility] Rep. Dorcas about the patient's shower chair and a wheelchair with a left rest. Awaiting Dorcas's phone call. All other questions and concerns were addressed. Will continue to monitor.
[2019-12-19] MEDS ORDERED: SYNTHROID0.175 MG PO (20:05)
--- NOTE | 2019-12-19 20:05 | NUR ---
Patient attended all therapies and tolerated well with prn pain meds ultram and ibuprofen. Patient spoke with SW multiple times today, but is still confused about whether he has his wheelchair ordered yet and whether it will be delivered to [facility] prior to his discharge tomorrow. See Additional Nursing Order to have SW follow up with patient on this tomorrow. This nurse reviewed patient's discharge meds with him today see additional nursing order for med that he has asked to have called into his pharmacy prior to his discharge tomorrow. Patient was also curious about whether he should continue his Levsin or if this needed to be discontinued upon discharge. Patient is planning on discussing this with Dr. Hutchison tomorrow. This nurse reported off to night nurse.
--- NOTE | 2019-12-19 22:49 | NUR ---
PATIENT DOING WELL TONIGHT. REQUESTED MOTRIN FOR MILD PAIN TO LLE. X6 LAP SITES TO L THIGH CDI WITH GAUZE AND TEGADERM APPLIED. SPLINT TO L ANKLE. TOOK SCHEDULED MEDICATIONS WITHOUT ISSUE. STILL SIGNIFICANT SWELLING TO L THIGH. PATIENT HAS BEEN CRUISING HALLS IN WHEELCHAIR AND SEEMS IN GOOD SPIRITS. NO FURTHER NEEDS AT THIS TIME. WILL CONTINUE TO MONITOR.
[2019-12-20 03:51] VITALS: BP 131/71; PULSE 65; TEMP 98.4
[2019-12-20] MEDS ORDERED: TYLENOL 325MG325 MG PO (08:33)
[2019-12-20] MEDS ORDERED: ULTRAM 50MG TAB50 MG PO (08:38)
[2019-12-20] MEDS ORDERED: PERCOCET 325 MG1 TA2 PO (08:38)
[2019-12-20] MEDS ORDERED: ASPERCREME1 EACH TP (08:38)
--- NOTE | 2019-12-20 09:39 | NUR ---
The patient is to discharge home with his today, 12/19. The patient is to have a HEP and will excelsior picker his DME at [facility] . EROS provided the address and phone number to [facility] and addressed any question and concerns. EROS spoke with Carine with [facility] faxed all needed information to [facility]. EROS faxed HNP/PT and OT notes to [facility]. There are no additional needs at this time.
--- NOTE | 2019-12-20 09:40 | NUR ---
PATIENT SITTING UP IN THE BEDSIDE CHAIR THIS MORNING. PATIENT IS A&OX4. VSS. BOWEL SOUNDS ACTIVE ALL FOUR QUADRANTS. PATIENT TOLERATING DIET WITHOUT COMPLAINTS OF N/V. NON-PITTING EDEMA TO LEFT HIP. ECCHYMOSIS OVER LEFT HIP NOTED. LEFT HIP INCISIONS X6 COVERED WITH GAUZE AND TEGADERM AND ARE CD&I. LLE SPLINT IN PLACE AND IS CD&I. CAP REFILL <3 SECONDS. CMS INTACT. PATIENT REQUESTING PAIN MEDICATION PRIOR TO DISCHARGE. CALL LIGHT WITHIN REACH. PATIENT DENIES ANY OTHER NEEDS AT THIS TIME.
--- NOTE | 2019-12-20 11:00 | NUR ---
DISCHARGE INSTRUCTIONS REVIEWED WITH PATIENT. QUESTIONS SOUGHT AND ANSWERED. NO OTHER NEEDS AT THIS TIME.
--- NOTE | 2019-12-20 12:05 | NUR ---
PATIENT PERSONAL BELONGINGS GATHERED. PATIENT TAKEN TO PERSONAL VEHICLE VIA WHEELCHAIR BY [facility] STAFF. PATIENT DISCHARGED.
== END 2019-12-20 12:05 | disposition home or self-care (01) | DRG 559 ==
PROVIDERS: Physician Assistant; ADMIT Internal Medicine
DX: S72.22XD Displaced subtrochanteric fracture of left femur, subsequent encounter for closed fracture with routine healing (principal); J96.01 Acute respiratory failure with hypoxia; E87.1 Hypo-osmolality and hyponatremia; I95.9 Hypotension, unspecified; D69.6 Thrombocytopenia, unspecified; S72.122D Displaced fracture of lesser trochanter of left femur, subsequent encounter for closed fracture with routine healing; S82.872D Displaced pilon fracture of left tibia, subsequent encounter for closed fracture with routine healing; R33.9 Retention of urine, unspecified; D64.9 Anemia, unspecified; N50.89 Other specified disorders of the male genital organs; R00.0 Tachycardia, unspecified; R21 Rash and other nonspecific skin eruption; K59.00 Constipation, unspecified; E78.5 Hyperlipidemia, unspecified; W11.XXXD Fall on and from ladder, subsequent encounter; Z79.891 Long term (current) use of opiate analgesic; Z79.82 Long term (current) use of aspirin
CPT/HCPCS: 99222-AI; 99231-AI; 99232-AI; 99233-AI; 99239